=== PATIENT | female | born 2005 | race Caucasian/White ===

== ENCOUNTER 2023-03-22 19:13 | Emergency (ER) | payer OTHER, SELFPAY ==
[2023-03-22 20:00] VITALS: BP 111/65; PULSE 81; RESP 18; TEMP 36.8; O2SAT 99; BMI 24.0
--- NOTE | 2023-03-22 20:48 | ED_ITS ---
HPI - Skin/Abscess/Foreign Bdy General Chief complaint: Skin/Abscess/Foreign Body Stated complaint: Thinks infected tattoo Time Seen by Provider: 03/22/23 19:44 Source: patient Mode of arrival: Ambulatory Limitations: no limitations History of Present Illness HPI narrative: This is a 17-year-old female with no reported medical issues who had large tiger tattoo placed on her right upper arm 9 days ago. Patient states there was some slight erythema initially never totally resolved and then started to spread over time. She states she is been doing appropriate aftercare with washing patting dry moisturizing. She states has had some increasing redness itchiness has been taking Benadryl without any improvement and redness started to read beyond the tattoo down her arm and extend. No fevers, no chest pain or shortness of breath, no nausea or vomiting, no chills. No other GI or urinary symptoms. No numbness tingling or weakness. Patient has had prior tattoos and did not have these issues in the past. No blistering or raised lesions or open wounds noted. Patient states no daily medications, no prior surgeries. No known drug allergies. No reported history of skin infections in the past. Denies tobacco, alcohol or illicit. 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 Related Data Previous Rx's Medication Instructions Recorded sulfamethoxazole 800 1 tab PO Q12H #20 tabs 03/22/23 mg-trimethoprim 160 mg tablet (Bactrim DS) Allergies Allergy/AdvReac Type Severity Reaction Status Date / Time No Known Drug Allergies Allergy Verified 03/22/23 19:59 Review of Systems Review of Systems ROS Unobtainable: All systems reviewed & are unremarkable except as noted in HPI and below Patient History Social History Smoking Status: Never smoker Smoking Status: Never smoker Substance Use Type: does not use Exam Narrative Exam Narrative: GENERAL: Alert and oriented x three, female in mild distress. HEENT: Head normocephalic, atraumatic, EOMI, pupils reactive, face symmetric, moist mucous membranes NECK: Supple, full range of motion CARDIOVASCULAR: Regular rate and rhythm without murmurs, rubs or gallops. RESPIRATORY: Breath sounds equal bilaterally, no wheezes rales or rhonchi. ABDOMEN: Soft, nontender. Normoactive bowel sounds all 4 quadrants. No guarding or rebound, rigidity, no mass : No CVA tenderness EXTREMITIES: Normal range of motion, no clubbing or edema. Neurovascularly intact. Patient has a large tattoo with black ink extending from the shoulder down to the elbow. It is not quite circumferential. There is erythema over the majority of the area of the tattoo and extending about 3 cm beyond past the elbow. There is some slight swelling it is slightly raised. There are no open wounds or draining areas. There is no blisters, oozing or been lesions. The redness is extending 1-2 cm around the majority of the tattoo accepted the base word extends 4 5. NEUROLOGICAL: Cranial nerves II through XII grossly intact. Moving all extremities SKIN: Warm, dry, no petechiae. See above. Initial Vital Signs Initial Vital Signs: Vital Signs Temperature 98.2 F 03/22/23 20:00 Pulse Rate 81 03/22/23 20:00 Respiratory Rate 18 03/22/23 20:00 Blood Pressure 111/65 03/22/23 20:00 Pulse Oximetry 99 03/22/23 20:00 Oxygen Delivery Method Room Air 03/22/23 20:00 Course Orders Ordered: Discontinued Medications Trimethoprim/Sulfamethoxazole (Trimeth/Sulfa 160/800 (Ds) Tablet) 1 tab PO NOW ONE Stop: 03/22/23 20:51 Last Admin: 03/22/23 21:04 Dose: 1 tab Documented By: YANNI Vital Signs Vital signs: Vital Signs - 8 hr 03/22/23 20:00 03/22/23 21:05 Temperature 98.2 F 97.7 F Pulse Rate 81 74 Respiratory Rate 18 16 Blood Pressure 111/65 118/70 Pulse Oximetry 99 99 Oxygen Delivery Method Room Air Room Air MDM - Skin/Abscess/Foreign Bdy MDM Narrative Medical decision making narrative: 17-year-old female with no reported medical issues, had recent tattoo has not had any reported skin infections in the past. Does appear to be developing a cellulitis there is no blistering or open wounds so culture was not obtained. Patient was started on oral antibiotic for MRSA coverage, discussed return precautions. Reviewed care for the tattoo and all questions answered. Discharge Plan Departure Patient Disposition: Home Clinical Impression: Cellulitis, History of tattoo Instructions: DI for Cellulitis -- Adult Activity Restrictions/Additional Instructions: You appear to be developing an infection over your tattoo. Take antibiotics until completed. Prescription sent to [facility] in [place]. You should not improvement in the next 24-48 hours. Wound Care: Keep wound(s) clean and dry. Wash twice daily with soap and water only and pat dry. Do not use over the counter products (alcohol or peroxide)on the wounds unless instructed by a physician. You can use vaseline over the affected area. If wound condition worsens (increased/expanding redness, developing fluid blisters, or worsening pain), either contact your doctor for an urgent re- assessment , or return to the Emergency Department. Return to the Emergency Department for any new or worsening symptoms. Return if fever greater than 100.4 Fahrenheit, increased swelling, increasing pain or worsening symptoms such as increased discharge or spreading redness, blistering of skin or other new or concerning changes. Prescriptions: New sulfamethoxazole-trimethoprim [Bactrim DS] 800-160 mg tablet 1 tab PO Q12H Qty: 20 0RF Stand Alone Forms: Patient Portal/API
[2023-03-22] MEDS: TRIMETH/SULFA 160/800 (DS) TABLET 1 TAB PO (21:04)
[2023-03-22 21:05] VITALS: BP 118/70; PULSE 74; RESP 16; TEMP 36.5; O2SAT 99
== END 2023-03-22 21:06 | disposition home or self-care (01) ==
PROVIDERS: Emergency Provider Emergency Medicine
DX: L03.113 Cellulitis of right upper limb (principal)
CPT/HCPCS: 99283

== ENCOUNTER 2025-03-05 17:54 | Emergency (ER) | payer OTHER, SELFPAY ==
[2025-03-05 17:58] VITALS: BP 117/69; PULSE 95; RESP 20; TEMP 37; O2SAT 100; BMI 24.0
--- NOTE | 2025-03-05 18:07 | ED.WOUNDLAC ---
HPI - Wound/Laceration General Stated Complaint: Rt leg laceration, Time Seen by Provider: 03/05/25 18:05 History of Present Illness HPI narrative: Patient is a 19-year-old female without any significant past medical history up-to-date on tetanus comes into the ED from home for evaluation of wound check, she states that yesterday she was shaving her legs, states that she cut the back of her right leg, very superficial abrasion noted to the back of her right calf, neurovascularly intact, she states that she was told by [employer] the [employer] to come into get it re-evaluated/checked to make sure that she can go back to work. Denies any other symptoms not on any blood thinner Related Data Previous Rx's ?Medication ?Instructions ?Recorded sulfamethoxazole 800 1 tab PO Q12H #20 tabs 03/22/23 mg-trimethoprim 160 mg tablet (Bactrim DS) Allergies Allergy/AdvReac Type Severity Reaction Status Date / Time Sulfa (Sulfonamide Allergy Mild Verified 03/05/25 17:59 Antibiotics) Review of Systems Review of Systems Narrative: General: Denies fever, chills, weight loss HEENT: Denies headache, eye drainage, eye irritation, head trauma, sore throat, voice change Cardiovascular: Denies any chest pain, palpitations, tachycardia Respiratory: Denies any shortness of breath, cough, wheeze, stridor GI/: Denies any abdominal pain, nausea, vomiting, diarrhea, bright red blood per rectum, melanotic stools, urinary frequency, urinary retention, dysuria, hematuria MSK: Denies any joint pain, muscle pains, swelling Skin: Abrasion/laceration to the back of the right leg Neuro: Denies any headache, lightheadedness, dizziness, fainting, weakness Psych: Denies SI/HI Exam Narrative Exam Narrative: General: Cooperative, well-developed, not in acute distress HEENT: Normocephalic, atraumatic, PERRLA, normal sclera, eyelids normal Neck: Active full range of motion, atraumatic Chest: Normal to inspection, negative crepitus, no overlying erythema ecchymosis Respiratory: Normal respiratory effort, not in acute respiratory distress, clear to auscultation bilaterally negative cough, wheeze, tachypnea, rhonchi, rales Cardiology: Regular rate rhythm negative gallop, murmur, rubs GI/: No tenderness to palpation, soft, non rigid, normal to inspection, exam deferred MSK: Full active range of motion in all 4 extremities, atraumatic, no tenderness to palpation of any bony prominences Skin: Superficial abrasion approximately 5 cm in length to the back of the right calf, neurovascularly intact not actively bleeding no indication for laceration repair Neuro: Alert awake oriented x3, moves all 4 extremities spontaneously, cranial nerves intact, able to answer all questions appropriately follows commands appropriately Psych: Cooperative, negative suicidal or homicidal ideations MDM - Wound/Laceration MDM Narrative Medical decision making narrative: Patient is a 19-year-old female who comes into the ED from home for evaluation of wound recheck, states that last night she was shaving her legs cut the back of her right leg superficial abrasion noted, she states that she slept with a gauze and when she tried to remove it there was some leftover gauze, on exam she is neurovascularly intact no foreign bodies, no indication for laceration repair. She states that she was only here because she is in the and needed to be evaluated and signed off. There is no indication for oral antibiotics we will place some bacitracin on top of the wound and have patient wash off/performed wound care at home. She was given strict return precautions verbalized understanding of this and agrees to being discharged home with outpatient follow up patient is up-to-date on tetanus Discharge Plan Departure Patient Disposition: Home Clinical Impression: Encounter for wound re-check Activity Restrictions/Additional Instructions: You are free to return back to your normal work duties Please read the discharge instructions sheet carefully and bring all papers to all doctor follow-up visits, as it may contain information that your doctor may want to see. Disease processes change and evolve, if your symptoms worsen or if you develop any new symptoms that are concerning to you please return for evaluation. Your evaluation today does not show any evidence of any life-threatening/serious illnesses requiring admission to the hospital or surgery. Please follow-up with your doctor for re-evaluation in approximately 1 day. Seek immediate medical attention for any worrisome symptoms. *If you do not have a primary care provider please contact the [facility] Resource line at [phone]. They will ask some questions about your medical history and help get you set up with a doctor in the community. Prescriptions: No Action sulfamethoxazole-trimethoprim [Bactrim DS] 800-160 mg tablet 1 tab PO Q12H Qty: 20 0RF Stand Alone Forms: Patient Portal/API
== END 2025-03-05 18:18 | disposition home or self-care (01) ==
PROVIDERS: Emergency Provider Student in an Organized Health Care Education/Training Program
DX: S80.811A Abrasion, right lower leg, initial encounter (principal); W26.8XXA Contact with other sharp object(s), not elsewhere classified, initial encounter
CPT/HCPCS: 99281